=== PATIENT | male | born 1950 | race Caucasian/White ===

== ENCOUNTER 2022-09-15 16:44 | Emergency (ER) | payer OTHER, SELFPAY ==
[2022-09-15] VITALS (11 sets, daily range): BP systolic 133–145; BP diastolic 68–84; PULSE 60–73; RESP 16–18; TEMP 36.6; O2SAT 96–99; BMI 30.4
--- NOTE | 2022-09-15 17:04 | ED_ITS ---
HPI - General Adult General Time Seen by Provider: 17:04 Date Seen: 09/15/22 Chief complaint: Skin/Abscess/Foreign Body Stated complaint: Edema R leg Time Seen by Provider: 09/15/22 17:03 Source: patient and RN notes reviewed Mode of arrival: ambulatory Limitations: no limitations History of Present Illness HPI narrative: Efra is a very pleasant 72-year-old gentleman with concern of redness and increasing pain in his right lower extremity. When he got up this morning he states he felt fine. He has been having increasing pain in his right lower extremity, starting to get a headache, noticing redness of his right leg as well. He has a remote history of prostate cancer and did not get lymphedema after that. 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 He notes in February sometime after the development of the diagnosis of CLL, did start to notice some lower extremity edema which she believes is lymphedema. He has not had any fevers, no nausea or vomiting. Well laying here is starting to develop a mild headache, denies any history of prior thromboembolic disease, he is not on any blood thinners outside of an 81 mg aspirin daily. No known trauma. Denies any history of MRSA. Related Data Home Medications Medication Instructions Recorded Confirmed aspirin 81 mg tablet,delayed 81 mg PO DAILY 09/15/22 09/15/22 release atorvastatin 80 mg tablet 80 mg PO DAILY 09/15/22 09/15/22 levothyroxine 50 mcg tablet 50 mcg PO DAILY 09/15/22 09/15/22 (Euthyrox) Allergies Allergy/AdvReac Type Severity Reaction Status Date / Time ciprofloxacin Allergy Verified 09/15/22 16:57 [facility] Social History Smoking Status: Never smoker Do you use any of these nicotine containing products: None Second hand tobacco smoke exposure: No How often do you have a drink containing alcohol: monthly or less How many standard drinks containing alcohol do you have on a typical day: 1 or 2 How often do you have six or more drinks on one occasion: Never AUDIT-C Alcohol total score: 1 Non-prescribed substance use: denies use service: No Exam Const: Vital Signs, click to edit/add: Vital Signs - 24 hr 09/15/22 16:59 09/15/22 17:27 Temperature 98 F Pulse Rate [Pulse Oximeter] 72 Respiratory Rate 18 Blood Pressure [Le ft Upper Arm] 145/84 H Pulse Oximetry 97 97 Oxygen Delivery Me thod Room Air Documenting provider has reviewed patient's vital signs: yes Common normals: no apparent distress, average body habitus, oriented x3, no limitations, healthy appearing and alert General appearance: cooperative, comfortable, well kempt and well developed HENMT: Common normals: normocephalic, head/scalp atraumatic and hearing grossly normal bilaterally Head and scalp: normocephalic and atraumatic Eye: Common normals: PERRL, EOMs intact bilaterally, conjunctivae normal and no scleral icterus Conjunctiva: conjunctiva(e) normal Pupil: PERRL Neck & C-Spine: Common normals: full ROM, no lymphadenopathy and supple Resp: Common normals: normal respiratory effort, no retractions, no use of accessory muscles and clear to auscultation bilaterally Effort & inspection: able to speak in complete sentences Auscultation: clear to auscultation bilaterally Cardio: Common normals: regular rate, regular rhythm, S1 normal heart sound, S2 normal heart sound, no gallops, no clicks and no murmurs Rate: regular rate Rhythm: regular rhythm Heart sounds: S1 normal and S2 normal GI: Common normals: Normal to inspection, nondistended, normoactive bowel sounds present, soft to palpation, non-tender, no hepatosplenomegaly and no masses Palpation: soft and no hepatosplenomegaly Extremity: Other: Patient has erythema along his upper right medial thigh, maybe a little bit developing laterally. No joint line tenderness. Overall, there is no pitting edema but his right lower extremity does look a little bit larger particularly at the thigh than his left. He does have some scattered scabs that are small without active evidence of infection over his lower extremities which he states were from bug bites. Neuro: Jenna Coma Scale: document GCS findings [place] coma scale eye opening: Spontaneous (4) [place] coma scale verbal response: Orientated (5) Jenna coma scale motor response: Obey commands (6) [place] coma scale total score: 15 Common normals: oriented x3 Sensorium/orientation: alert Psych: Appearance: well kempt Course Course Hospital Course: This patient most definitely has right lower extremity cellulitis. Will rule out underlying DVT with a venous ultrasound. We will place an IV, start 1 L of IV fluids, no vital sign documentation of sepsis findings at this time. Need to get full complement of labs including blood cultures. At this time, there is nothing in his history that would suggest that we cannot simply start with a cephalosporin for treatment with this. Will initiate Ancef as soon as I am able to. Reevaluation(s) Time of Reevaluation #1: 19:46 Reevaluation #1: Reviewed with patient the negative ultrasound, reassuring labs. Did recheck his temperature, he is at 99.4, he was chilling mildly. He has received his 1st dose of Ancef here. Consultations Consultation #1: Did review case with hospitalist. He does not feel that there is criteria for admission. Did recommend a MRSA nasal swab, may change her antibiotic approach if this were to come back positive. This is an excellent idea and I have ordered it. We discussed discharge antibiotics and he did recommend expanded coverage in this patient with Augmentin which we will do. Meds will be from [employer]. Time: 20:00 Vital Signs Vital signs: Initial Vital Signs Temperature 98 F 09/15/22 16:59 Temperature Source Temporal Artery Scan 09/15/22 16:59 Pulse Rate 72 09/15/22 16:59 Pulse Rhythm Regular 09/15/22 16:59 Respiratory Rate 18 09/15/22 16:59 Blood Pressure 145/84 H 09/15/22 16:59 Blood Pressure Mean 104 09/15/22 16:59 Blood Pressure Position Supine 09/15/22 16:59 Pulse Oximetry 97 09/15/22 16:59 Oxygen Delivery Method Room Air 09/15/22 16:59 Vital Signs Temperature 98 F 09/15/22 16:59 Pulse Rate 72 09/15/22 16:59 Respiratory Rate 18 09/15/22 16:59 Blood Pressure 145/84 H 09/15/22 16:59 Pulse Oximetry 97 09/15/22 16:59 Oxygen Delivery Method Room Air 09/15/22 16:59 Temperature 98 F 09/15/22 16:59 Pulse Rate 72 09/15/22 16:59 Respiratory Rate 18 09/15/22 16:59 Blood Pressure 145/84 H 09/15/22 16:59 Pulse Oximetry 97 09/15/22 17:27 Oxygen Delivery Method Room Air 09/15/22 16:59 Medical Decision Making Lab Data Lab results reviewed: Yes I reviewed the patient's lab results Labs: Lab Results 09/15/22 09/15/22 09/15/22 Range/Units 17:27 17:28 17:48 WBC 6.90 (4.50-11.00) K/uL RBC 4.00 L (4.30-5.90) m/uL Hgb 12.1 L (13.5-17.5) gm/dL Hct 36.9 L (37.0-53.0) % MCV 92 (80-100) fL MCH 30 (26-34) pg MCHC 33 (32-36) gm/dL RDW Coeff of Chan 13.1 (11.5-15.5) % Plt Count 156 (140-440) K/uL Neut % (Auto) 58.2 (42.0-72.0) % Lymph % (Auto) 36.1 (20-44) % Hooker % (Auto) 2.6 (0.0-11.0) % Eos % (Auto) 2.5 (0.0-7.0) % Baso % (Auto) 0.3 (0.0-3.0) % Neut # (Auto) 4.02 (1.7-7.0) K/uL Lymph # (Auto) 2.49 (0.90-2.90) K/uL Hooker # (Auto) 0.20 (0.00-0.90) K/UL Eos # (Auto) 0.17 (0.00-0.50) K/uL Baso # (Auto) 0.02 (0.00-0.30) K/uL Abs Immat Gran (auto) 0.02 (0.00-0.30) K/uL Imm/Tot Granulo (auto) 0.3 % ESR 10 (2-15) mm/hr Sodium 137 (135-149) mmol/L Potassium 4.1 (3.6-5.1) mmol/L Chloride 104 (96-114) mmol/L Carbon Dioxide 27 (20-32) mmol/L BUN 25 (7-30) mg/dL Creatinine 1.1 (0.5-1.5) mg/dL Estimated Creat Clear 59.59 Estimated GFR 72 ml/min Glucose 105 (60-115) mg/dL Lactate 1.1 (0.5-1.9) mmol/L Calcium 8.8 (8.4-10.6) mg/dL Total Bilirubin 0.6 (0.1-1.5) mg/dL AST 31 (12-35) U/L ALT 25 (4-50) U/L Alkaline Phosphatase 74 (40-150) U/L C-Reactive Protein < 0.5 L (0.5-1.0) mg/dL Total Protein 6.5 (6.0-8.3) g/dL Albumin 3.9 (3.3-5.0) g/dL Procalcitonin 0.04 (<0.50) ng/mL Urine Color (Yellow) Urine Appearance (Clear) Urine pH (5.0-8.5) Ur Specific [place] (1.000-1.030) Urine Protein (Negative) Urine Glucose (UA) (Negative) Urine Ketones (Negative) Urine Blood (Negative) Urine Nitrite (Negative) Urine Bilirubin (Negative) Urine Urobilinogen (0.2-1.0) Ur Leukocyte Esterase (Negative) 09/15/22 Range/Units 19:30 WBC (4.50-11.00) K/uL RBC (4.30-5.90) m/uL Hgb (13.5-17.5) gm/dL Hct (37.0-53.0) % MCV (80-100) fL MCH (26-34) pg MCHC (32-36) gm/dL RDW Coeff of Chan (11.5-15.5) % Plt Count (140-440) K/uL Neut % (Auto) (42.0-72.0) % Lymph % (Auto) (20-44) % Hooker % (Auto) (0.0-11.0) % Eos % (Auto) (0.0-7.0) % Baso % (Auto) (0.0-3.0) % Neut # (Auto) (1.7-7.0) K/uL Lymph # (Auto) (0.90-2.90) K/uL [place] # (Auto) (0.00-0.90) K/UL Eos # (Auto) (0.00-0.50) K/uL Baso # (Auto) (0.00-0.30) K/uL Abs Immat Gran (auto) (0.00-0.30) K/uL Imm/Tot Granulo (auto) % ESR (2-15) mm/hr Sodium (135-149) mmol/L Potassium (3.6-5.1) mmol/L Chloride (96-114) mmol/L Carbon Dioxide (20-32) mmol/L BUN (7-30) mg/dL Creatinine (0.5-1.5) mg/dL Estimated Creat Clear Estimated GFR ml/min Glucose (60-115) mg/dL Lactate (0.5-1.9) mmol/L Calcium (8.4-10.6) mg/dL Total Bilirubin (0.1-1.5) mg/dL AST (12-35) U/L ALT (4-50) U/L Alkaline Phosphatase (40-150) U/L C-Reactive Protein (0.5-1.0) mg/dL Total Protein (6.0-8.3) g/dL Albumin (3.3-5.0) g/dL Procalcitonin (<0.50) ng/mL Urine Color Yellow (Yellow) Urine Appearance Clear (Clear) Urine pH 6.0 (5.0-8.5) Ur Specific [place] 1.015 (1.000-1.030) Urine Protein Negative (Negative) Urine Glucose (UA) Negative (Negative) Urine Ketones Negative (Negative) Urine Blood Negative (Negative) Urine Nitrite Negative (Negative) Urine Bilirubin Negative (Negative) Urine Urobilinogen 0.2 (0.2-1.0) Ur Leukocyte Esterase Negative (Negative) Imaging Data Venous US: Attestation: I have reviewed the pertinent imaging results. Radiologist's impression: Patient: EFRA KEE Facility:?[facility] Patient ID:?[id number] Site Patient ID:?[id number]. Site :?[id number] Study:?US Extremity Right LEG-09/15/2022 6:14:38 PM Ordering Physician:Trevor Flores Final Report: INDICATION: PAIN/SWELLING TECHNIQUE: Ultrasound venous duplex right lower extremity. COMPARISON: None. FINDINGS: The right common femoral, superficial femoral, deep femoral, popliteal, posterior tibial, and greater saphenous veins are fully compressible with normal waveforms. The contralateral left common femoral artery is fully compressible with normal waveform. No masses evident. IMPRESSION: Normal ultrasound of the right lower extremity veins. Dictated by: Christopher Bravo MD @ 09/15/2022 18:38:35 (Electronic Signature) Critical Care Time Critical Care Time Critical Care Time: No Discharge Plan Discharge Clinical Impression: Cellulitis, Dysuria Patient Disposition: Home, Self-Care Condition: Stable Instructions: Cellulitis (ED), Dysuria (ED) Additional Instructions: Start Augmentin tonight and take as prescribed, will have you take for 10 days. Do recommend elevating this leg the next 2-3 days until the redness starts to improve. You may see some mild increased redness, possibly have some low-grade fevers for the next few days. If the area is rapidly expanding, are having fevers above 101, having increasing pain instead of improving, any reason that you cannot take oral antibiotics, do need to be re-evaluated. Have also written for Zofran 10 tablets to be used as prescribed for nausea. We will contact you if the MRSA swab does come back positive, may need to consider changing or expanding antibiotic coverage if this is positive. The urinalysis is showing no acute abnormalities. You may have urinary tract irritation that is not infectious and may need to ultimately see Urology if this continues. Activity Level: Activity as Tolerated Prescriptions: No Action atorvastatin 80 mg tablet 80 mg PO DAILY aspirin 81 mg tablet,delayed release (DR/EC) 81 mg PO DAILY levothyroxine [Euthyrox] 50 mcg tablet 50 mcg PO DAILY Stand Alone Forms: [employer] Info Instructions
--- NOTE | 2022-09-15 17:27 | CRLHL7_ITS ---
For Patients: As a result of the Century Cures Act, medical imaging exams and procedure reports are released immediately into your electronic medical record. You may view this report before your referring provider. If you have questions, please contact your health care provider. INDICATION: PAIN/SWELLING TECHNIQUE: Ultrasound venous duplex right lower extremity. COMPARISON: None. FINDINGS: The right common femoral, superficial femoral, deep femoral, popliteal, posterior tibial, and greater saphenous veins are fully compressible with normal waveforms. The contralateral left common femoral artery is fully compressible with normal waveform. No masses evident. IMPRESSION: Normal ultrasound of the right lower extremity veins. Dictated by: Christopher Bravo MD @ 09/15/2022 18:38:35 (Electronically Signed)
[2022-09-15 17:55] LABS: Lactate* 1.1 mmol/L (0.5-1.9)
[2022-09-15 17:58] LABS: Basophils Absolute Auto 0.02 K/uL (0.00-0.30); Basophils Percent Auto 0.3 % (0.0-3.0); Eosinophils Absolute Auto 0.17 K/uL (0.00-0.50); Eosinophils Percent Auto 2.5 % (0.0-7.0); Hematocrit 36.9 % (37.0-53.0); Hemoglobin* 12.1 gm/dL (13.5-17.5); Immature Granulocytes Abs Auto 0.02 K/uL (0.00-0.30); Immature Granulocytes Pct Auto 0.3 %; Lymphocytes Absolute Auto 2.49 K/uL (0.90-2.90); Lymphocytes Percent Auto 36.1 % (20-44); Mean Corpuscular HGB Conc 33 gm/dL (32-36); Mean Corpuscular Hemoglobin 30 pg (26-34); Mean Corpuscular Volume 92 fL (80-100); Monocytes Percent Auto 2.6 % (0.0-11.0); Neutrophils Absolute Auto 4.02 K/uL (1.7-7.0); Neutrophils Percent Auto 58.2 % (42.0-72.0); Platelet Count* 156 K/uL (140-440); RDW Coefficient of Variation % 13.1 % (11.5-15.5)
[2022-09-15 18:02] LABS: Slide Review Reflex No
[2022-09-15] MEDS: 0.9 % SODIUM CHLORIDE 1000 ml 1,000 ML 500 ML IV (18:03)
[2022-09-15 18:22] LABS: Chloride* 104 mmol/L (96-114); Sodium* 137 mmol/L (135-149)
[2022-09-15 18:23] LABS: Albumin* 3.9 g/dL (3.3-5.0); Potassium* 4.1 mmol/L (3.6-5.1)
[2022-09-15 18:26] LABS: Alanine Aminotransferase* 25 U/L (4-50); Alkaline Phosphatase* 74 U/L (40-150); Aspartate Amino Transferase* 31 U/L (12-35); Bilirubin Total* 0.6 mg/dL (0.1-1.5); Blood Urea Nitrogen* 25 mg/dL (7-30); Calcium* 8.8 mg/dL (8.4-10.6); Carbon Dioxide* 27 mmol/L (20-32); Creatinine* 1.1 mg/dL (0.5-1.5); Est. Creatinine Clearance* 59.59; Estimated Glomerular Filt Rate 72 ml/min; Glucose* 105 mg/dL (60-115); Total Protein* 6.5 g/dL (6.0-8.3)
[2022-09-15] MEDS: CEFAZOLIN 2 GM in 0.9 % SODIUM CHLORIDE Mini-bag 100 ML IVPB (18:28)
[2022-09-15 18:38] LABS: Erythrocyte SedimentationRate* 10 mm/hr (2-15)
[2022-09-15 18:41] LABS: C Reactive Protein* < 0.5 mg/dL (0.5-1.0)
[2022-09-15 19:31] LABS: Procalcitonin* 0.04 ng/mL (<0.50)
--- OUTSIDE RECORDS SUMMARY | 2022-09-15 19:35 | XMS_ITS | Continuity of Care Document ---
Author Name Unknown Organization [facility] Address [address] [address] [place] [address] Phone Care Team Providers Care Oceanography Professor Name Role Phone Efra Dudley MD Unavailable Unavailable Allergies, Adverse Reactions, Alerts Substance Reaction Status Criticality No Known allergies Medications Medication Instructions Dosage Effective Dates (start - stop) Status Comments indomethacin 50 mg Cap as needed - Active Vitamin D unknown Use as directed - Active Adderall 30 mg Tab Take one tablet by mouth daily - Active Procedures Procedure Date Colonoscopy Flex; Dx (sep Pro) 09 Advance Directives Directive Yes / No Effective Date File Name No Information Encounters Encounter Description Practice Location Reason(s) For Visit Diagnoses Date Provider Providers Copied on Encounter [facility], [address] [address], [place], [place], [id number], [place] tel:[phone] [facility] Colon Cancer ScreeningDiverticul osis Of Colon [address] [facility], [facility] [address], [place], [place], [id number] , [place]. tel:[phone] Family History Family Member Type Diagnosis Age At Onset No Information Payers Payer name Insurance type Covered libertarian ID Authoriza tion(s) [employer] [id number] Social History Type Description Quantity Date Captured Comments Sex Male Smoking Status No Information Chief Complaint And Reason For Visit No Information Reason For Referral Reason For Referral No Information History Of Present Illness Encounter Date Complaint History Of Prese nt Illness No Information Functional Status Date Functional Assessmen t No Information Instructions Date Instruction Additional Infor mation No Information Assessments Type Assessment Date No Information Patient Care Teams Name Effective Dates (start - stop) Status Members No Information
[2022-09-15 19:44] LABS: Appearance Urine Clear (Clear); Bilirubin Urine Negative (Negative); Blood Urine Negative (Negative); Color Urine Yellow (Yellow); Glucose Urine Negative (Negative); Ketones Urine Negative (Negative); Leukocyte Esterase Urine Negative (Negative); Nitrite Urine Negative (Negative); Protein Urine Negative (Negative); Specific Gravity Urine 1.015 (1.000-1.030); Urobilinogen Urine 0.2 (0.2-1.0)
[2022-09-15] MEDS: ONDANSETRON 2 MG/ML inj 4 MG IVP (20:15)
[2022-09-15 20:24] LABS: RBC Urine 0-2 (0-2); WBC Urine 0-2 (0-5)
--- NOTE | 2022-09-16 14:28 | ED.NURSE ---
called the patient at home and informed that Dr. Vogel would like to return to ED for rechecked due to Positive cocci in clusters from both aerobic and anaerobic bottles. patient stated will make way back to ED.
== END 2022-09-15 20:28 | disposition home or self-care (01) ==
PROVIDERS: Emergency Provider Family Medicine
DX: L03.115 Cellulitis of right lower limb (principal); R30.0 Dysuria
CPT/HCPCS: 36415; 80053; 81001; 83605; 84145; 85025; 85651; 86140; 87040; 87081; 87186; 93971; 94761; 96365; 96375; 99284; J0690; J2405; J7030

== ENCOUNTER 2022-09-16 14:57 | Emergency (ER) | payer OTHER, SELFPAY ==
[2022-09-16 15:00] VITALS: BP 112/69; PULSE 69; RESP 16; TEMP 35.9; O2SAT 99; BMI 30.4
--- NOTE | 2022-09-16 15:01 | ED.GENADULT ---
HPI - General Adult General Chief complaint: Unspecified Complaint, Adult Stated complaint: Blood cultures tested positive Time Seen by Provider: 09/16/22 15:07 History of Present Illness HPI narrative: Called patient to return into the ED or see PCP today due to positive blood cultures in both bottles reading gram positive cocci in clusters. pressure in the cellulitis of the right thigh and c/o 72-year-old man returning to the emergency department after having 2 aerobic blood cultures go positive for g positive cocci in clusters. Was seen in this department about 20 hours ago. Given initial dose of Ancef and transition to Augmentin. After leaving here he reports having had a fever of 102.5. He then had the sweats appears the fever broke. Has not return. Overall he would say feels better. Did have his legs elevated overnight. Does have good deal discomfort in the right groin. Presume source is cellulitis of the right lower extremity. Has had a number of bug bites in the area. Underlying history of CLL stage I he says not receiving any treatment. Did receive extensive treatment for metastatic prostate cancer stage IV with last cares received in 2012. He is not reporting any nausea. Leg seems little less swollen maybe a little less red than yesterday. Related Data Home Medications Medication Instructions Recorded Confirmed aspirin 81 mg tablet,delayed 81 mg PO DAILY 09/15/22 09/16/22 release atorvastatin 80 mg tablet 80 mg PO DAILY 09/15/22 09/16/22 levothyroxine 50 mcg tablet 50 mcg PO DAILY 09/15/22 09/16/22 (Euthyrox) Allergies Allergy/AdvReac Type Severity Reaction Status Date / Time ciprofloxacin Allergy cartilge Verified 09/16/22 15:06 and tendon pain Review of Systems Status of ROS: Reports: 6 or more systems reviewed and unremarkable except as noted in History and below PFSH PFS Social History Smoking Status: Never smoker Do you use any of these nicotine containing products: None Second hand tobacco smoke exposure: No How often do you have a drink containing alcohol: monthly or less How many standard drinks containing alcohol do you have on a typical day: 1 or 2 How often do you have six or more drinks on one occasion: Never AUDIT-C Alcohol total score: 1 Non-prescribed substance use: denies use service: No Exam Narrative: Exam Narrative: Pleasant. NAD. Talkative. Of good energy. Breathing easily. Lungs appear to be clear. Heart with regular rate and rhythm. Abdomen is overweight soft. Well-perfused peripherally. Right leg in particular noted to have blotchy faint erythema faint calor over the thigh and to the knee essentially. I do not appreciate lymphadenopathy in the right inguinal area where he does say that he has some pain. Approximate outlines made. Small excoriation/scabs consistent with a bug bites scattered over bilateral lower extremities. Const: Vital Signs, click to edit/add: Vital Signs - 24 hr 09/16/22 15:00 09/16/22 17:30 Temperature 96.7 F L 97.6 F Pulse Rate [Right Pulse Oximeter] 69 55 L Respiratory Rate 16 16 Blood Pressure [Ri ght Upper Arm] 112/69 Pulse Oximetry 99 97 Oxygen Delivery Me thod Room Air Room Air Documenting provider has reviewed patient's vital signs: yes Course Vital Signs Vital signs: Initial Vital Signs Temperature 96.7 F L 09/16/22 15:00 Temperature Source Temporal Artery Scan 09/16/22 15:00 Pulse Rate 69 09/16/22 15:00 Respiratory Rate 16 09/16/22 15:00 Blood Pressure 112/69 09/16/22 15:00 Blood Pressure Mean 83 09/16/22 15:00 Blood Pressure Position Sitting 09/16/22 15:00 Pulse Oximetry 99 09/16/22 15:00 Oxygen Delivery Method Room Air 09/16/22 15:00 Vital Signs Temperature 96.7 F L 09/16/22 15:00 Pulse Rate 69 09/16/22 15:00 Respiratory Rate 16 09/16/22 15:00 Blood Pressure 112/69 09/16/22 15:00 Pulse Oximetry 99 09/16/22 15:00 Oxygen Delivery Method Room Air 09/16/22 15:00 Temperature 97.6 F 09/16/22 17:30 Pulse Rate 55 L 09/16/22 17:30 Respiratory Rate 16 09/16/22 17:30 Blood Pressure 112/69 09/16/22 15:00 Pulse Oximetry 97 09/16/22 17:30 Oxygen Delivery Method Room Air 09/16/22 17:30 Medical Decision Making MDM Narrative Medical decision making narrative: Plan at this point is to place IV for potential long-term use. Will evaluate for IV antibiotics and pros/cons of admission versus outpatient therapy. Appears vitally well at this time. Recheck labs and redraw blood cultures. Labs and vitals remained reassuring though CRP is moderately elevated from yesterday. MRSA from swab still pending I discussed with hospitalist. Will attempt outpatient at this time. Vancomycin has been initiated. This can be dosed once daily pending solid ID and sensitivities. Reassess formally in the emergency department pending worsening in 48 hours. See patient discharge plan Lab Data Lab results reviewed: Yes I reviewed the patient's lab results Labs: Lab Results 09/16/22 Range/Units 16:00 WBC 7.08 (4.50-11.00) K/uL RBC 3.92 L (4.30-5.90) m/uL Hgb 12.0 L (13.5-17.5) gm/dL Hct 36.3 L (37.0-53.0) % MCV 93 (80-100) fL MCH 31 (26-34) pg MCHC 33 (32-36) gm/dL RDW Coeff of Chan 13.1 (11.5-15.5) % Plt Count 147 (140-440) K/uL Neut % (Auto) 61.8 (42.0-72.0) % Lymph % (Auto) 33.2 (20-44) % [place] % (Auto) 2.8 (0.0-11.0) % Eos % (Auto) 1.8 (0.0-7.0) % Baso % (Auto) 0.1 (0.0-3.0) % Neut # (Auto) 4.37 (1.7-7.0) K/uL Lymph # (Auto) 2.35 (0.90-2.90) K/uL [place] # (Auto) 0.20 (0.00-0.90) K/UL Eos # (Auto) 0.13 (0.00-0.50) K/uL Baso # (Auto) 0.01 (0.00-0.30) K/uL Abs Immat Gran (auto) 0.02 (0.00-0.30) K/uL Imm/Tot Granulo (auto) 0.3 % C-Reactive Protein 6.6 H (0.5-1.0) mg/dL Discharge Plan Discharge Clinical Impression: Bacteremia, Cellulitis Patient Disposition: Home w/ Parent or Adult Condition: Stable Additional Instructions: Stay well hydrated. Stop Augmentin for now. Please return between 1 - 2 pm tomorrow and return also the following day () for re-dosing. Anticipate formal reassessment in about 48 hours. I understand that you will be needing to advance your dosing by a few hours each day in order to make all these other appointments you have. Be seen for increasing weakness, recurrent fever over 101, repeated vomiting. Prescriptions: No Action atorvastatin 80 mg tablet 80 mg PO DAILY aspirin 81 mg tablet,delayed release (DR/EC) 81 mg PO DAILY levothyroxine [Euthyrox] 50 mcg tablet 50 mcg PO DAILY Follow Up/Referrals: Provider,Not a Local [Primary Care Provider] - Stand Alone Forms: [employer] Info Instructions
[2022-09-16 16:17] LABS: Basophils Absolute Auto 0.01 K/uL (0.00-0.30); Basophils Percent Auto 0.1 % (0.0-3.0); Eosinophils Absolute Auto 0.13 K/uL (0.00-0.50); Eosinophils Percent Auto 1.8 % (0.0-7.0); Hematocrit 36.3 % (37.0-53.0); Immature Granulocytes Abs Auto 0.02 K/uL (0.00-0.30); Immature Granulocytes Pct Auto 0.3 %; Lymphocytes Absolute Auto 2.35 K/uL (0.90-2.90); Lymphocytes Percent Auto 33.2 % (20-44); Mean Corpuscular HGB Conc 33 gm/dL (32-36); Mean Corpuscular Hemoglobin 31 pg (26-34); Mean Corpuscular Volume 93 fL (80-100); Monocytes Percent Auto 2.8 % (0.0-11.0); Neutrophils Absolute Auto 4.37 K/uL (1.7-7.0); Neutrophils Percent Auto 61.8 % (42.0-72.0); Platelet Count* 147 K/uL (140-440); RDW Coefficient of Variation % 13.1 % (11.5-15.5); Red Blood Count 3.92 m/uL (4.30-5.90); White Blood Count* 7.08 K/uL (4.50-11.00)
[2022-09-16 16:30] LABS: Slide Review Reflex No
[2022-09-16 16:47] LABS: C Reactive Protein* 6.6 mg/dL (0.5-1.0)
--- NOTE | 2022-09-16 17:03 | ED.NURSE ---
prior to the start of IV antibiotic (irlandao) had a second nurse double check the IV site for patentcy, working great
[2022-09-16 17:30] VITALS: PULSE 55; RESP 16; TEMP 36.4; O2SAT 97
--- NOTE | 2022-09-16 20:05 | ED.NURSE ---
[facility] called and message left regarding upcoming outpatient infusions. Pt to receive 2000 mg Vancomycin IV once daily for 48 hours (Thursday and infusions). D/t pt's upcoming appointments at [facility], pt's dosage times to be moved up. Pt to return tomorrow (09/17/22) between 1 - 2 PM for second infusion, per MD instruction. Pt verbalizes understanding and IV left saline locked, intact, and taped down to be used for upcoming infusions, per MD order. Infusion Therapy Request form, discharge instructions detailing physician's order for dosage time to be moved up, and physician written orders of medication infusion faxed to [facility] ([phone]).
== END 2022-09-16 20:09 | disposition home or self-care (01) ==
PROVIDERS: Emergency Provider Family Medicine
DX: L03.116 Cellulitis of left lower limb (principal); R78.81 Bacteremia
CPT/HCPCS: 36415; 85025; 86140; 87040; 96365; 99284; J3370; J7120

== ENCOUNTER 2022-09-18 07:45 | Outpatient (RCR) | payer OTHER, SELFPAY ==
[2022-09-17 13:40] VITALS: BP 120/77; PULSE 62; RESP 16; O2SAT 98
[2022-09-18 08:00] VITALS: BP 118/65; PULSE 57; RESP 16; TEMP 35.9; O2SAT 98
--- NOTE | 2022-09-18 10:19 | ONC.NURNOTE ---
Pt completed day 2 of vancomycin, no future orders. Supervisor Curing Room spoke to Vesna in Emergency room on 09/17/[address] Bob available to reassess pt on 09/18. Vesna RN stated pt will need to be seen by primary care or return to ED. Pt aware he needs to be evaluated by primary care or the Emergency room later today. Pt will be at [facility] for planned appts today and tomorrow for his CLL.
== END 2023-03-16 23:59 | disposition home or self-care (01) ==
LOC: CCIC 07:45
PROVIDERS: Visit Provider Family Medicine
DX: L03.115 Cellulitis of right lower limb (principal); R78.81 Bacteremia
CPT/HCPCS: 96365; 96366; J3370; J7120; J7131

== ENCOUNTER 2022-09-19 12:23 | Emergency (ER) | payer OTHER, SELFPAY ==
[2022-09-19 12:55] VITALS: BP 114/73; PULSE 58; RESP 18; TEMP 35.9; O2SAT 98; BMI 30.4
[2022-09-19 14:30] VITALS: BP 136/90; PULSE 52; O2SAT 99
--- NOTE | 2022-09-19 14:42 | ED.GENADULT ---
HPI - General Adult General Time Seen by Provider: 14:42 Date Seen: 09/19/22 Chief complaint: Unspecified Complaint, Adult Stated complaint: blood check up Time Seen by Provider: 09/19/22 12:42 Source: patient and RN notes reviewed Mode of arrival: ambulatory Limitations: no limitations History of Present Illness HPI narrative: Efra is a very pleasant 72-year-old male that I saw with significant right lower extremity cellulitis on September 15, initiated Ancef in the ED and placed him on outpatient Augmentin. He did take the Augmentin for 1 day but was called back due to positive blood cultures. His blood cultures grew MSSA, MRSA a nasal swab screening was negative. He did complete 72 hours of outpatient vancomycin. 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 He has had no further fevers, his leg feels great and there is absolutely no pain in the leg any longer. His last vancomycin dose was yesterday around 10:00 a.m.. He still has Augmentin at home, has not been on any antibiotics since yesterday morning. He would prefer to not have blood work if he does not have to today. Did review that the blood cultures from September 16 are negative. Related Data Home Medications Medication Instructions Recorded Confirmed aspirin 81 mg tablet,delayed 81 mg PO DAILY 09/15/22 09/17/22 release atorvastatin 80 mg tablet 80 mg PO DAILY 09/15/22 09/17/22 levothyroxine 50 mcg tablet 50 mcg PO DAILY 09/15/22 09/17/22 (Euthyrox) Allergies Allergy/AdvReac Type Severity Reaction Status Date / Time ciprofloxacin Allergy cartilge Verified 09/17/22 13:47 and tendon pain Review of Systems Narrative: As per HPI. PFS PFS Social History Smoking Status: Never smoker Do you use any of these nicotine containing products: None Second hand tobacco smoke exposure: No How often do you have a drink containing alcohol: monthly or less How many standard drinks containing alcohol do you have on a typical day: 1 or 2 How often do you have six or more drinks on one occasion: Never AUDIT-C Alcohol total score: 1 Non-prescribed substance use: denies use service: No Exam Const: Vital Signs, click to edit/add: Vital Signs - 24 hr 09/19/22 12:55 09/19/22 14:30 Temperature 96.6 F L Pulse Rate [Pulse Oximeter] 58 L 52 L Respiratory Rate 18 Blood Pressure [Ri ght Upper Arm] 114/73 136/90 H Pulse Oximetry 98 99 Oxygen Delivery Me thod Room Air Room Air 72-year-old male that is alert, interactive, no apparent distress. No flushing, speaking in complete sentences, looks to be in excellent health. CV regular rate and rhythm, no murmur, normal S1 and S2. Right lower extremity has completely resolved erythema, see no evidence of any cellulitis. He still has a few scabs over his right lower extremities from prior bug bites that are healing, again, no evidence of any surrounding erythema or infection. Documenting provider has reviewed patient's vital signs: yes Course Course Hospital Course: Given that he has a normal white blood count from yesterday and that he is really truly asymptomatic today, do not think that any blood work is going to alter my a planning and decision making for him. Thus, will not put him through the trouble of trying axis further blood from him. He has multiple bruises from recent blood draws in IV access. Discussed antibiotics with him. He has a 10 day course of Augmentin for which she is only use 1 day. Reviewed with him with the MSSA, could even use less broad medication then Augmentin but he has this at home. Will ask that he complete 6 more days of the Augmentin outpatient to ensure resolution of this cellulitis. Vital Signs Vital signs: Initial Vital Signs Temperature 96.6 F L 09/19/22 12:55 Temperature Source Temporal Artery Scan 09/19/22 12:55 Pulse Rate 58 L 09/19/22 12:55 Respiratory Rate 18 09/19/22 12:55 Blood Pressure 114/73 09/19/22 12:55 Blood Pressure Mean 86 09/19/22 12:55 Blood Pressure Position Sitting 09/19/22 12:55 Pulse Oximetry 98 09/19/22 12:55 Oxygen Delivery Method Room Air 09/19/22 12:55 Vital Signs Temperature 96.6 F L 09/19/22 12:55 Pulse Rate 58 L 09/19/22 12:55 Respiratory Rate 18 09/19/22 12:55 Blood Pressure 114/73 09/19/22 12:55 Pulse Oximetry 98 09/19/22 12:55 Oxygen Delivery Method Room Air 09/19/22 12:55 Temperature 96.6 F L 09/19/22 12:55 Pulse Rate 52 L 09/19/22 14:30 Respiratory Rate 18 09/19/22 12:55 Blood Pressure 136/90 H 09/19/22 14:30 Pulse Oximetry 99 09/19/22 14:30 Oxygen Delivery Method Room Air 09/19/22 14:30 Discharge Plan Discharge Clinical Impression: Bacteremia, Cellulitis Patient Disposition: Home, Self-Care Condition: Stable Instructions: Cellulitis (ED) Additional Instructions: Would recommend that you complete 6 days of Augmentin, 1 pill twice a day. I think your fine to increase activity as tolerated in get back to your normal routine. However, when you are resting, it may be helpful to still try to elevate this leg and not keep it dependent. If there is any return of fevers or redness like you had before with this cellulitis, do need to be re-evaluated. Activity Level: Activity as Tolerated Prescriptions: No Action atorvastatin 80 mg tablet 80 mg PO DAILY aspirin 81 mg tablet,delayed release (DR/EC) 81 mg PO DAILY levothyroxine [Euthyrox] 50 mcg tablet 50 mcg PO DAILY Follow Up/Referrals: Provider,Not a Local [Primary Care Provider] - Stand Alone Forms: [employer] Info Instructions
[2022-09-19 15:10] VITALS: BP 141/101; PULSE 54; RESP 16
== END 2022-09-19 15:10 | disposition home or self-care (01) ==
PROVIDERS: Emergency Provider Family Medicine
DX: L03.115 Cellulitis of right lower limb (principal)
CPT/HCPCS: 99282; 99283

== ENCOUNTER 2022-10-23 15:30 | Outpatient (RCR) | payer OTHER, SELFPAY | END 2023-01-14 17:33 | disposition home or self-care (01) | PROVIDERS: Visit Provider Physical Medicine & Rehabilitation | DX: I89.0 Lymphedema, not elsewhere classified (principal); M79.89 Other specified soft tissue disorders; R60.0 Localized edema; Z51.89 Encounter for other specified aftercare | CPT/HCPCS: 97110; 97140; 97166; 97535; X5282 ==